=== PATIENT | female | born 1975 | race Caucasian/White ===

== ENCOUNTER → 2020-06-09 12:36 | Outpatient (CLI) | payer OTHER, SELFPAY ==
--- NOTE | 2020-06-09 12:48 | DI.MG.S_ITS ---
BILATERAL DIGITAL SCREENING MAMMOGRAM 3D/2D WITH CAD: 06/09/2020 CLINICAL: Routine screening. Family history of breast cancer. Comparison is made to exams dated: 02/15/2018 mammogram and 02/07/2019 mammogram - [facility]. The tissue of both breasts is heterogeneously dense. This may lower the sensitivity of mammography. Current study was also evaluated with a Computer Aided Detection (CAD) system. There is a possible 1 cm irregular equal density asymmetry in the left breast posterior depth lateral region seen on the craniocaudal view only. This is more prominent. There is also possible architectural distortion associated with the asymmetry. No other significant masses, calcifications, or other findings are seen in either breast. IMPRESSION: INCOMPLETE: NEEDS ADDITIONAL IMAGING EVALUATION The possible 1 cm irregular equal density asymmetry in the left breast is indeterminate. Additional views with possible ultrasound are recommended. This exam was interpreted at Station ID: [id number]. NOTE: For mammograms, a report in lay terms will be sent to the patient. Approximately 15% of breast malignancies will not be visualized mammographically. In the management of a palpable breast mass, a negative mammogram must not discourage biopsy of a clinically suspicious lesion. Electronically Signed By: Bossman Pereira M.D. aty/:06/11/2020 07:45:11 letter sent: Additional Imaging Needed ACR BI-RADS Category 0: Incomplete 3340F
== END ==
PROVIDERS: Referring Provider Physician Assistant; Visit Provider Physician Assistant
DX: Z12.31 Encounter for screening mammogram for malignant neoplasm of breast (principal); Z80.3 Family history of malignant neoplasm of breast
CPT/HCPCS: 77063; 77067

== ENCOUNTER → 2020-07-02 12:46 | Outpatient (CLI) | payer OTHER, SELFPAY ==
--- NOTE | 2020-07-02 | DI.MG.S_ITS ---
UNILATERAL LEFT DIGITAL DIAGNOSTIC MAMMOGRAM 3D/2D WITH ADDITIONAL VIEWS: 07/02/2020 CLINICAL: Family history of breast cancer. Comparison is made to exams dated: 06/09/2020 mammogram - [facility], 02/07/2019 mammogram, and 02/15/2018 mammogram - [facility]. The tissue of left breast is heterogeneously dense. This may lower the sensitivity of mammography. There is an oval equal density focal asymmetry with an indistinct margin in the left breast at 3 o'clock posterior depth. No other significant masses or calcifications are seen in the breast. IMPRESSION: INCOMPLETE: NEEDS ADDITIONAL IMAGING EVALUATION The oval equal density focal asymmetry in the left breast is indeterminate. An ultrasound is recommended. Ultrasound will be performed immediately following the current exam. This exam was interpreted at Station ID: [id number]. NOTE: For mammograms, a report in lay terms will be sent to the patient. Approximately 15% of breast malignancies will not be visualized mammographically. In the management of a palpable breast mass, a negative mammogram must not discourage biopsy of a clinically suspicious lesion. Electronically Signed By: Aydin Mccabe M.D. ddp/:07/02/2020 13:14:57 ACR BI-RADS Category 0: Incomplete 3340F
--- NOTE | 2020-07-02 | DI.US.S_ITS ---
LIMITED ULTRASOUND OF LEFT BREAST: 07/02/2020 CLINICAL: Patient returns today to evaluate a focal asymmetry in the left breast. Comparison is made to exams dated: 07/02/2020 mammogram, 06/09/2020 mammogram - [facility], 02/07/2019 mammogram, and 02/15/2018 mammogram - [facility]. Real-time ultrasound of the left breast 2-4 o'clock region was performed on the area of interest. No discrete cystic or solid mass lesion identified in the area of mammographic abnormality. IMPRESSION: SUSPICIOUS OF MALIGNANCY There are no abnormalities seen in the left breast to correspond with the mammography findings at 2-4 o'clock. However, given patient's family history, a stereotactic guided biopsy is recommended of the focal asymmetry in the lateral left breast. The findings were personally discussed with the patient at the conclusion of the study by telephone on 07/02/20 shortly following the conclusion of the study. This exam was interpreted at Station ID: [id number]. Electronically Signed By: Aydin hooks/:07/02/2020 14:23:21 letter sent: Biopsy Required Ultrasound BI-RADS: 4 Suspicious for malignancy
== END ==
PROVIDERS: Referring Provider Physician Assistant; Visit Provider Physician Assistant
DX: R92.8 Other abnormal and inconclusive findings on diagnostic imaging of breast (principal); N64.89 Other specified disorders of breast; Z80.3 Family history of malignant neoplasm of breast
CPT/HCPCS: 76642; 77065; G0279

== ENCOUNTER → 2021-10-17 12:03 | Outpatient (CLI) | payer OTHER, SELFPAY ==
--- NOTE | 2021-10-17 | DI.MG.S_ITS ---
BILATERAL DIGITAL DIAGNOSTIC MAMMOGRAM 3D/2D POST LUMPECTOMY: 10/17/2021 CLINICAL: Post lumpectomy left- due bilat. Family history of breast cancer. Comparison is made to exams dated: 07/02/2020 ultrasound, 07/02/2020 mammogram, and 06/09/2020 mammogram - [facility]. The tissue of both breasts is heterogeneously dense. This may lower the sensitivity of mammography. The patient is status post partial mastectomy left breast with expected post-operative findings. No significant masses, calcifications, or other findings are seen in either breast. IMPRESSION: NEGATIVE There is no mammographic evidence of malignancy. A 1 year screening mammogram is recommended; however, shorter interval surveillance can be considered at the direction of treating oncologic/surgical team. Findings and recommendations were conveyed to the patient during today's evaluation. This exam was interpreted at Station ID: [id number]. NOTE: For mammograms, a report in lay terms will be sent to the patient. Approximately 15% of breast malignancies will not be visualized mammographically. In the management of a palpable breast mass, a negative mammogram must not discourage biopsy of a clinically suspicious lesion. Electronically Signed By: Bossman Pereira M.D. aty/:10/17/2021 13:16:24 letter sent: Normal Exam ACR BI-RADS Category 1: Negative [id number]
== END ==
PROVIDERS: PCP Physician Assistant; Referring Provider Internal Medicine Hematology & Oncology; Visit Provider Internal Medicine Hematology & Oncology
DX: R92.8 Other abnormal and inconclusive findings on diagnostic imaging of breast (principal); C50.912 Malignant neoplasm of unspecified site of left female breast; Z17.0 Estrogen receptor positive status [ER+]; Z80.3 Family history of malignant neoplasm of breast
CPT/HCPCS: 77066; G0279

== ENCOUNTER → 2022-06-26 09:30 | Outpatient (CLI) | payer OTHER, SELFPAY ==
--- NOTE | 2022-06-26 | DI.CT.S_ITS ---
PROCEDURE: CT CHEST ABD PEL W CON INDICATIONS: breast cancer surveillance, neuropathy RT LE TECHNIQUE: After the administration of oral and intravenous contrast, axial sections acquired from the supraclavicular neck to the pubic symphysis. Coronal and sagittal reformats were performed. For radiation dose reduction, the following was used: automated exposure control, adjustment of mA and/or kV according to patient size. COMPARISON: None. FINDINGS: Image quality: Excellent. CHEST: Lower Neck: No enlarged lymph nodes. Axillae: No enlarged lymph nodes. Chest Wall: Postsurgical changes of the left breast. The breasts are not well evaluated by CT. Lungs and Airways: No consolidation or suspicious nodules. Pleura: No pneumothorax or pleural effusions. Heart: No pericardial effusion. Thoracic Vessels: The aorta and pulmonary arteries demonstrate normal size. Mediastinum and Batool: No enlarged lymph nodes. Esophagus: No wall thickening. ABDOMEN: Liver: Ill-defined region of enhancement present in segment 8/5 measuring approximately 1.1 cm (). Gallbladder: Unremarkable. Biliary ducts: Unremarkable. Pancreas: Unremarkable. Spleen: Unremarkable. Adrenal Glands: Unremarkable. Kidneys and Ureters: Unremarkable. Stomach and Bowel: No bowel obstruction. Peritoneum: No abnormal intraperitoneal fluid. No free air. Abdominal Nodes: No retroperitoneal or mesenteric adenopathy by size criteria. Vessels: Aorta and inferior vena cava are normal in size. PELVIS: Pelvic Organs: Unremarkable. Bladder: Unremarkable. Pelvic Nodes: No enlarged lymph nodes. Bones: Multilevel degenerative change of the visualized spine. IMPRESSION: 1. An ill-defined region of enhancement is present in the right lobe of the liver, nonspecific. This could potentially represent a hemangioma, vascular shunt, or perfusion anomaly but metastatic disease cannot be excluded. Breast cancer metastases to the liver are typically hypoenhancing rather than hyperenhancing however. If clinically indicated, MRI of the liver with and without contrast may be helpful for characterization or to exclude the presence of a suspicious lesion in this area. Otherwise, attention on follow-up is recommended. 2. Otherwise, no findings suspicious for metastatic disease identified. Dictated by: Ariel Dupree M.D. on 06/26/2022 at 15:03 Approved by: Ariel Dupree M.D. on 06/26/2022 at 15:23
--- NOTE | 2022-06-26 | DI.MRI.S_ITS ---
PROCEDURE: MR LUMBAR SPINE WO/W CON INDICATIONS: breast cancer surveilance, neuropathy RT LE TECHNIQUE: Noncontrast sagittal T1 spin echo and T2 fast echo, sagittal STIR, and T2 fast spin echo through the lumbar spine. In cases with scoliosis, additional coronal T2 fast spin echo may be performed. COMPARISON: [facility], CT, CT CHEST ABD PEL W CON, 06/26/2022, 10:37. FINDINGS: Image quality: Excellent. Alignment and Curvature: There is normal bony alignment. Bone Marrow: There is overall loss of the normal fatty marrow signal seen, which is best demonstrated on series 3, with loss of the normal right fatty marrow signal on T1 weighted images. No focally suspicious bone marrow lesions are seen, however. No significant abnormal bone marrow enhancement is seen. Spinal Cord: Conus medullaris terminates at the L1 level. Visualized cord demonstrates normal signal and size. Paraspinous Soft Tissues: No paravertebral masses. T12-L1: Normal appearance. L1-L2: Normal appearance. L2-L3: No significant abnormality is seen. L3-L4: The disc height and disk signal are well-preserved. Mild to moderate disc bulge is seen. Moderate facet joint hypertrophy is seen. Moderate bilateral neural foraminal narrowing is seen. Moderate central canal narrowing is seen. L4-L5: There is at least moderate loss of disc height and disc signal seen. Reactive marrow endplate changes are seen, which demonstrate mixed T1 weighted and T2-weighted signal, and are attributed to a combination of edema and fatty metaplasia (Modic type I and Modic type II changes). Mild endplate enhancement can be seen, as on series 7, image 11, which is attributed to degenerative/reactive enhancement. At least moderate disc bulge is seen, with a central disc protrusion. Moderate facet joint hypertrophy is seen. There is at least moderate right-sided and moderate to severe left-sided neural foraminal narrowing. There is a degree of compression seen upon the exiting nerve roots. At least moderate central canal narrowing is seen, as on series 5, image 26. L5-S1: The disc height and disk signal are well-preserved. Mild generalized disc bulge is seen. Mild facet joint hypertrophy is seen. There is [id number] right-sided and moderate left-sided neural foraminal narrowing. No central canal narrowing is seen. IMPRESSION: No findings of bony metastatic disease can be seen. No abnormal enhancement is seen. Focal L4-L5 degenerative change. There is generalized loss of the normal fatty marrow signal seen. Please correlate with patient history, including anemia. Dictated by: Gibran Rios M.D. on 06/26/2022 at 15:33 Approved by: Gibran Rios M.D. on 06/26/2022 at 15:37
== END ==
PROVIDERS: PCP Physician Assistant; Referring Provider Internal Medicine Hematology & Oncology; Visit Provider Internal Medicine Hematology & Oncology
DX: Z08 Encounter for follow-up examination after completed treatment for malignant neoplasm (principal); Z85.3 Personal history of malignant neoplasm of breast; M47.816 Spondylosis without myelopathy or radiculopathy, lumbar region; R63.4 Abnormal weight loss; G57.91 Unspecified mononeuropathy of right lower limb
CPT/HCPCS: 71260; 72158; 74177; A9579; Q9967

== ENCOUNTER 2022-07-30 09:22 | Day surgery (SDC) | payer OTHER, SELFPAY ==
[2022-07-30] VITALS (7 sets, daily range): BP systolic 92–125; BP diastolic 53–83; PULSE 48–58; RESP 12–16; TEMP 36.1–36.9; O2SAT 95–99; BMI 31.3
[2022-07-30] MEDS: LACTATED RINGERS 1,000 ML 42 ML IV (10:15)
--- NOTE | 2022-07-30 10:21 | PM.HP.1 ---
History of Present Illness History of Present Illness Date Patient Seen: 07/30/22 Chief complaint: SDC Narrative: For screening colonoscopy Patient History Medical History Degenerative joint disease of left knee Surgical History (Updated 07/30/22 @ 09:54 by Terrie Mott RN) H/O breast surgery H/O eye surgery Family & Social History Family History Father Hypertension Afib Mother No problems noted. Grandmother Dementia Social History: household members spouse Tobacco & Substance use: Smoking Status Never smoker alcohol intake frequency holiday/special occasion Substance Use Type does not use Meds Home Medications and Allergies Home Medications Medication Instructions Recorded Confirmed Type exemestane 25 mg tablet 25 mg PO DAILY 06/03/21 07/30/22 History leuprolide 3.75 mg intramuscular 3.75 mg IM QMONTH 06/03/21 07/30/22 History syringe kit (Lupron Depot) gabapentin 100 mg capsule 100 mg PO BID 11/27/21 07/30/22 History hydrochlorothiazide 12.5 mg tablet 12.5 mg PO DAILY 03/17/22 07/30/22 History meloxicam 15 mg tablet 15 mg PO DAILY PRN knee pain #30 03/17/22 07/30/22 Rx tabs Allergies Allergy/AdvReac Type Severity Reaction Status Date / Time bacitracin Allergy Intermediate Rash Verified 07/30/22 09:53 Exam Vital Signs (past 8 hours): - 07/30/22 09:58 Temperature 98.1 F Pulse Rate 58 L Respiratory Rate 16 Blood Pressure 125/83 Pulse Oximetry 98 Oxygen Delivery Method Room Air Oxygen Delivery Method Room Air Narrative Exam Narrative: Oropharynx free of lesions Chest clear to auscultation percussion Cardiac exam reveals no S3 or murmur Assessment & Plan Assessment & Plan narrative: For screening colonoscopy. Risks, benefits, alternatives have been explained. Time Spent With Patient Critical Care time: I spent a total of [] minutes of critical care time on this patient's care today; this time is exclusive of procedural time.
--- NOTE | 2022-07-30 10:22 | PM.OP.COLON ---
Operative Date/Time/Diagnoses Date of procedure: 07/30/22 Pre-op diagnosis: See indication and findings Procedure & Clinicians Study performed: Colonoscopy Indications: For screening colonoscopy Surgeon: Doni Jenkins Procedure Notes Procedure in detail: After informed consent was obtained the patient was placed in left lateral decubitus position. The video colonoscope was introduced the rectum slowly advanced to the cecum. Preparation was good. On slow withdrawal mucosa was carefully examined. The scope was removed the patient tolerated procedure well. Blood loss none Complications none Sedation propofol Findings 1. Normal colonoscopy to cecum When he should have follow-up colonoscopy in 10 years oral or
== END 2022-07-30 11:31 | disposition home or self-care (01) ==
PROVIDERS: PCP Physician Assistant; Referring Provider Internal Medicine Gastroenterology; Visit Provider Internal Medicine Gastroenterology
PROC: 0DJD8ZZ Inspection of Lower Intestinal Tract, Via Natural or Artificial Opening Endoscopic (ICD-10-PCS; CPT 45378; principal; 2022-07-30 10:30)
DX: Z12.11 Encounter for screening for malignant neoplasm of colon (principal)
CPT/HCPCS: 45378; J2704